=== PATIENT | female | born 1985 | race American Indian/Alaskan Native ===

== ENCOUNTER 2019-05-20 09:18 | Emergency (ER) | payer OTHER, MEDICAID ==
[2019-05-20 09:22] VITALS: BP 128/71
[2019-05-20] MEDS ORDERED: ULTRAM PO ONE (10:22)
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
== END 2019-05-20 12:37 | disposition home or self-care (01) ==
LOC: ED 09:18
DX: S16.1XXA Strain of muscle, fascia and tendon at neck level, initial encounter (principal); M54.5 Low back pain; Z79.899 Other long term (current) drug therapy; V43.52XA Car driver injured in collision with other type car in traffic accident, initial encounter; Y93.89 Activity, other specified; Y92.488 Other paved roadways as the place of occurrence of the external cause; Y99.8 Other external cause status
CPT/HCPCS: 72040; 72100; 99283